=== PATIENT | female | born 2000 | race Hispanic/Latino ===

== ENCOUNTER 2023-04-21 18:36 | Emergency (ER) | payer SELFPAY ==
--- OUTSIDE RECORDS SUMMARY | 2023-04-21 18:38 | XMS REPORT | Continuity of Care Document ---
:2000 Author Organization [facility] t Address [address] [facility] [address] [place] [address] Care Team Providers Name Role Phone Unavailable Unavailable Unavailable Problems This patient has no known problems. Allergies, Adverse Reactions, Alerts This patient has no known allergies or adverse reactions. Medications This patient has no known medications. Procedures This patient has no known procedures. Encounters Start End Encounter Admission Attending Care Care Encounter Source Date/Time Date/Time Type Type Clinicians Facility Department ID 2023-03-27 2023-03-27 Outpatient [facility] [id number] 14:46:57 14:46:57 [id number] F Eber 2023-03-20 2023-03-20 Outpatient [facility] [id number] 13:48:47 13:48:47 [id number] F Eber 2023-03-12 2023-03-12 Outpatient [facility] [id number] 15:25:37 15:25:37 [id number] F Eber Results This patient has no known results.
--- NOTE | 2023-04-21 21:06 | RAD REPORT ---
EXAM DESCRIPTION: US - Pelvis Complete - 04/21/2023 8:49 pm CLINICAL HISTORY: bleeding with tissue Pelvic pain. COMPARISON: No comparisons FINDINGS: The uterus is normal in size, shape and echotexture. The uterus measures 7.9 x 3.7 x 5 cm with volume of 76.3 cc The endometrial stripe measures 7 mm, within normal limits for age Both ovaries are normal in size, shape and echotexture. The right ovary measures 4.7 cc. The left o vary measures 4.9 cc. No ovarian or parovarian lesions. No adnexal masses. Normal Doppler blood flow was demonstrated to both ovaries. No significant pelvic ascites. IMPRESSION: Unremarkable study.Bilateral ovarian blood flow.
[2023-04-21 21:10] LABS: Absolute Lymphocytes (CBC) 3.6 K/uL (0.7-4.9); MCV 85.8 fL (80-100); MPV 6.6 fL (7.6-11.3); Platelets 386 thou/uL (152-406); RBC Red Blood Cell Count 4.66 M/uL (3.86-4.86)
[2023-04-21 21:10] LABS: Specific Gravity 1.012 (1.005-1.030)
[2023-04-21 21:18] LABS: Specific Gravity 1.012 (1.005-1.030); Urine Bacteria 20-50 /HPF (<20); Urine Bilirubin NEGATIVE (Negative); Urine Blood 3+ (OVER) (Negative); Urine Clarity Turbid (Clear); Urine Color Colorless (Yellow); Urine Glucose NEGATIVE (Negative); Urine Mucus Slight /HPF (None Seen); Urine Protein NEGATIVE (Negative); Urine Urobilinogen Normal (Normal); Urine pH 5.5 (5.0-7.0)
[2023-04-21] MEDS ORDERED: DICYCLOMINE HCL 10 MG CAP ONE (21:20)
[2023-04-21] MEDS ORDERED: ACETAMINOPHEN 500 MG TAB ONE (21:20)
[2023-04-21] MEDS ORDERED: IBUPROFEN 400 MG TAB ONE (21:20)
[2023-04-21 21:29] LABS: ALT/SGPT 21 U/L (13-56); AST/SGOT 15 U/L (15-37); Albumin 4.1 g/dL (3.4-5.0); Alkaline Phosphatase 75 U/L (45-117); BUN Blood Urea Nitrogen 12 mg/dL (7-18); Bicarbonate 25 mEq/L (21-32); Bilirubin Total 0.5 mg/dL (0.2-1.0); Glomerular Filtration Rate 119 ml/min (=/>90); Glucose Level 92 mg/dL (74-106); Potassium 3.8 mEq/L (3.5-5.1); Protein, Total 8.7 g/dL (6.4-8.2); Sodium Level 136 mEq/L (136-145)
[2023-04-21 21:39] LABS: HCG, Quantitative < 1 mIU/mL (1-3)
--- NOTE | 2023-04-21 21:39 | ER ---
Nurse's Notes [facility] Name: Roberta Farias Age: 22 yrs Sex: Female : 2000 Arrival Date: 04/21/2023 Time: 18:36 Bed 14 Private MD: Diagnosis: Primary dysmenorrhea;Menorrhagia Presentation: 04/21 19:22 Chief complaint: Patient states: yesterday I went to the bathroom and there was a blood vc1 in the [facility] said she wasn't . Coronavirus screen: Client denies travel out of the [place] in the last 14 days. At this time, the client does not indicate any symptoms associated with coronavirus-19. Ebola Screen: Patient negative for fever greater than or equal to 101.5 degrees Fahrenheit, and additional compatible Ebola Virus Disease symptoms Patient denies exposure to infectious person. Patient denies travel to an Ebola-affected area in the 21 days before illness onset. No symptoms or risks identified at this time. Risk Assessment: Do you want to hurt yourself or someone else? Patient reports no desire to harm self or others. Onset of symptoms was April 17, 2023. 19:22 Method Of Arrival: Ambulatory vc1 19:22 Acuity: MARK 4 vc1 21:54 Initial Sepsis Screen: Does the patient meet any 2 criteria? No. Patient's initial km8 sepsis screen is negative. Does the patient have a suspected source of infection? No. Patient's initial sepsis screen is negative. 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 - Family history:: not pertinent. Screenin:10 [facility] ED Fall Risk Assessment (Adult) History of falling in the last 3 months, km8 including since admission No falls in past 3 months (0 pts) Confusion or Disorientation No (0 pts) Intoxicated or Sedated No (0 pts) Impaired Gait No (0 pts) Mobility Assist Device Used No (0 pt) Altered Elimination No (0 pt) Score/Fall Risk Level 0 - 2 = Low Risk Oriented to surroundings, Maintained a safe environment, Educated pt \T\ family on fall prevention, incl call for assistance when getting out of bed, Assessed \T\ reinforced patient's understanding of fall precautions. Abuse screen: Denies threats or abuse. Denies injuries from another. Nutritional screening: No deficits noted. Tuberculosis screening: No symptoms or risk factors identified. Assessment: 21:10 General: Appears in no apparent distress. comfortable, Behavior is calm, cooperative, km8 appropriate for age. Pain: Complains of pain in suprapubic area Pain currently is 6 out of 10 on a pain scale. Quality of pain is described as crampy. Neuro: Christiansen Agitation-Sedation Scale (RASS): 0 - Alert and Calm Level of Consciousness is awake, alert, obeys commands, Oriented to person, place, time, situation. Cardiovascular: Denies chest pain, shortness of breath, Capillary refill < 3 seconds Patient's skin is warm and dry. Respiratory: Airway is patent Respiratory effort is even, unlabored, Respiratory pattern is regular, symmetrical. GI: Abdomen is flat, Reports lower abdominal pain. 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 EENT: No signs and/or symptoms were reported regarding the EENT system. Derm: No signs and/or symptoms reported regarding the dermatologic system. Skin is intact, Skin is dry, Skin is normal, Skin temperature is warm. Musculoskeletal: No signs and/or symptoms reported regarding the musculoskeletal system. Range of motion: intact in all extremities. Vital Signs: 19:22 Height 5 ft. 3 in. ; vc1 19:31 BP 123 / 78; Pulse 63; Resp 18; Temp 98.6; Pulse Ox 100% ; Weight 78.93 kg; Height 5 vc1 ft. 3 in. ; 21:10 BP 134 / 78; Pulse 60; Resp 16 S; Pulse Ox 100% on R/A; km8 21:30 BP 127 / 70; Pulse 58; Resp 16; Pulse Ox 100% ; km8 19:31 Body Mass Index 30.82 (78.93 kg, 160.02 cm) vc1 ED Course: 18:38 Patient arrived in ED. rg4 19:13 Nacho Silva MD is Attending Physician. sp4 19:27 Triage completed. vc1 19:31 Arm band placed on right wrist. vc1 20:02 Urinalysis W/Microscopic Sent. lg3 20:02 Test, Urine Sent. lg3 20:41 Gaby Velasco, RN is Primary Nurse. km8 20:51 US Pelvis Complete In Process Unspecified. EDMS 21:03 CBC with Diff Sent. km8 21:03 Quantitative Hcg Sent. km8 21:03 CMP Sent. km8 21:03 Inserted saline lock: 22 gauge in right antecubital area, using aseptic technique. km8 Blood collected. 21:10 Patient has correct armband on for positive identification. Call light in reach. Side km8 rails up X 1. Client placed on continuous cardiac and pulse oximetry monitoring. NIBP monitoring applied. 21:10 Patient maintains SpO2 saturation greater than 95% on room air. km8 21:38 Scarlet Juarez MD is Referral Physician. sp4 21:53 No provider procedures requiring assistance completed. IV discontinued, intact, km8 bleeding controlled, No redness/swelling at site. Pressure dressing applied. 21:54 Provided Education on: d/c teaching. km8 Administered Medications: 21:09 Drug: Ibuprofen PO 800 mg PO once Route: PO; km8 21:40 Follow up: Response: No adverse reaction km8 21:09 Drug: Acetaminophen PO 1000 mg PO once Route: PO; km8 21:40 Follow up: Response: No adverse reaction km8 21:09 Drug: Dicyclomine PO 20 mg PO once Route: PO; km8 21:40 Follow up: Response: No adverse reaction km8 Medication: 21:54 VIS not applicable for this client. km8 Outcome: 21:39 Discharge ordered by . sp4 21:53 Discharged to home ambulatory, with significant other, km8 21:53 Condition: good 21:53 Discharge instructions given to patient, significant other, Instructed on discharge instructions, follow up and referral plans. Demonstrated understanding of instructions, follow-up care, 21:54 Patient left the ED. km8 Signatures: Dispatcher [employer] EDMS Vianey Valdez rg4 Gifty Cope, [place] RN lg3 Aura Chase RN RN vc1 Nacho Silva MD MD sp4 Gaby Velasco, RN RN km8
--- NOTE | 2023-04-21 21:39 | EDPHYS ---
Physician Documentation [facility] Name: Roberta Farias Age: 22 yrs Sex: Female : 2000 Arrival Date: 04/21/2023 Time: 18:36 Bed 14 Private MD: ED Physician Nacho Silva HPI: 04/21 19:15 This 22 yrs old Female presents to ER via Unassigned with complaints of sp4 Vaginal Bleeding, Vaginal Pain. 04/22 20:21 MrsCade Flores lot of this is 22-year-old female Hebrew-speaking only who presents with sp4 complaint of vaginal bleeding starting 04/17/2023 associated with blood clots and also passing some tissue. Patient brought a picture of the tissue that she passed a well menstruating and she reports it looks like a piece of meat. Patient states her test at home was negative. Patient is concerned about passing the tissue and blood clots. . 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 - Family history:: not pertinent. ROS: 04/22 20:21 Constitutional: Negative for fever, chills, and weight loss, : Positive vaginal sp4 bleeding and passing of the clots. All other systems are negative, Exam: 20:21 Constitutional: This is a well developed, well nourished patient who is awake, alert, sp4 and in no acute distress. Head/Face: Normocephalic, atraumatic. Eyes: Pupils equal round and reactive to light, extra-ocular motions intact. Lids and lashes normal. Conjunctiva and sclera are not injected. Cornea within normal limits. Periorbital areas with no swelling, redness, or edema. ENT: Nares patent. No nasal discharge, no septal abnormalities noted. Tympanic membranes are normal and external auditory canals are clear. Oropharynx with no redness, swelling, or masses, exudates, or evidence of obstruction, uvula midline. Mucous membranes moist. Neck: Trachea midline, no thyromegaly or masses palpated, and no cervical lymphadenopathy. Supple, full range of motion without nuchal rigidity, or vertebral point tenderness. Chest/axilla: Normal chest wall appearance and motion. Nontender with no deformity. No lesions are appreciated. Cardiovascular: Regular rate and rhythm with a normal S1 and S2. No gallops, murmurs, or rubs. Normal PMI, no JVD. No pulse deficits. Respiratory: Lungs have equal breath sounds bilaterally, clear to auscultation and percussion. No rales, rhonchi or wheezes noted. No increased work of breathing, no retractions or nasal flaring. Abdomen/GI: Soft, non-tender, with normal bowel sounds. No distension or tympany. No guarding or rebound. No evidence of tenderness throughout. Back: No spinal tenderness. No costovertebral tenderness. Skin: Warm, dry with normal turgor. Normal color with no rashes, no lesions, and no evidence of cellulitis. MS/ Extremity: Pulses equal, no cyanosis. Neurovascular intact. Full, normal range of motion. Neuro: Awake and alert, GCS 15, oriented to person, place, time, and situation. Cranial nerves II-XII grossly intact. Motor strength 5/5 in all extremities. Sensory grossly intact. Psych: Awake, alert, with orientation to person, place and time. Behavior, mood, and affect are within normal limits Vital Signs: 04/21 19:22 Height 5 ft. 3 in. ; vc1 19:31 BP 123 / 78; Pulse 63; Resp 18; Temp 98.6; Pulse Ox 100% ; Weight 78.93 kg; Height 5 vc1 ft. 3 in. ; 21:10 BP 134 / 78; Pulse 60; Resp 16 S; Pulse Ox 100% on R/A; km8 21:30 BP 127 / 70; Pulse 58; Resp 16; Pulse Ox 100% ; km8 19:31 Body Mass Index 30.82 (78.93 kg, 160.02 cm) vc1 MDM: 19:17 Patient medically screened. sp4 04/22 20:21 Differential diagnosis: telly infection, cervicitis, dysfunctional uterine bleeding, sp4 dysmenorrhea, ectopic , endometriosis. Data reviewed: vital signs, nurses notes, lab test result(s), radiologic studies, ultrasound. Consideration of Admission/Observation Escalation of care including admission/observation considered. 20:24 ED course: Patient has normal ultrasound today normal work-up normal blood flow to sp4 ovaries, normal blood test, negative hCG. No emergent medical conditions found on work-up. Patient stable for discharge home. Patient was referred to ELECTRICAL LOGGER.. 04/21 19:15 Order name: Test, Urine; Complete Time: 21:14 sp4 04/21 19:15 Order name: Urinalysis W/Microscopic; Complete Time: 21:29 sp4 04/21 19:28 Order name: Quantitative Hcg; Complete Time: 20:23 sp4 04/21 19:28 Order name: CBC with Diff; Complete Time: 21:29 sp4 04/21 19:28 Order name: CMP; Complete Time: 20:23 sp4 04/21 19:28 Order name: US Pelvis Complete; Complete Time: 21:14 sp4 04/21 19:28 Order name: Saline Lock; Complete Time: 21:02 sp4 Administered Medications: 04/21 21:09 Drug: Ibuprofen PO 800 mg PO once Route: PO; km8 21:40 Follow up: Response: No adverse reaction km8 21:09 Drug: Acetaminophen PO 1000 mg PO once Route: PO; km8 21:40 Follow up: Response: No adverse reaction km8 21:09 Drug: Dicyclomine PO 20 mg PO once Route: PO; km8 21:40 Follow up: Response: No adverse reaction km8 Disposition Summary: 04/21/23 21:39 Discharge Ordered Problem: new sp4 Symptoms: have improved sp4 Condition: Stable sp4 Diagnosis - Primary dysmenorrhea sp4 - Menorrhagia sp4 Followup: sp4 - With: Private Physician - When: 10 - 14 days - Reason: Recheck today's complaints Followup: sp4 - With: Scarlet Juarez MD - When: 7 - 10 days - Reason: Recheck today's complaints Discharge Instructions: - Discharge Summary Sheet sp4 - Menorrhagia, [id number] sp4 Forms: - Patient Portal Instructions sp4 Signatures: Dispatcher [employer] Aura Ornelas RN RN 1 Nacho Silva MD MD sp4 Gaby Velasco RN RN km8
[2023-04-21 22:24] VITALS: TEMP 98.6; O2SAT 100
[2023-04-21 22:29] VITALS: BP 127/70
== END 2023-04-21 21:54 | disposition home or self-care (01) ==
LOC: ER 18:36
DX: N94.4 Primary dysmenorrhea (principal)
CPT/HCPCS: 36415; 76856; 80053; 81001; 81025; 84702; 85025; 99284